=== PATIENT | female | born 1985 | race Two or more races ===

== ENCOUNTER 2020-04-22 12:02 | Emergency (ER) | payer SELFPAY ==
[~2020-04-22] VITALS: Ht 167.6 cm; Wt 60.0 kg
[2020-04-22 12:10] VITALS: BP 134/87
== END 2020-04-22 13:00 | disposition left against medical advice (07) ==
LOC: ER 12:02
DX: R50.9 Fever, unspecified (principal)
CPT/HCPCS: 99281